=== PATIENT | female | born 1935 | race Caucasian/White ===

== ENCOUNTER 2016-11-14 17:38 | Inpatient (IN) | payer MEDICARE, BC ==
[2016-11-14] MEDS ORDERED: Sodium Chloride 0.9% 1000 ML 0 ML ONE (18:20)
[2016-11-14] MEDS ORDERED: Sodium Chloride 0.9% 1000 ML 1,000 ML IV STA (18:26)
[2016-11-14] MEDS ORDERED: MORPHINE SULFATE 4 MG INJ IV ONE (18:26)
[2016-11-14] MEDS ORDERED: PROTONIX 40 MG IV IV ONE ×2 (18:26→18:39)
[2016-11-14] MEDS ORDERED: Zofran 4 MG/2 ML VIAL IV ONE (18:26)
--- NOTE | 2016-11-14 18:31 | ERPHSYRPT ---
- History of Present Illness Historian: patient, family Exam Limitations: no limitations Patient Subjective Stated Complaint: states shes out of her morphine pain medications back is hurting cannot get in to see dr ornelas until wednesday. pt alert and orietned states has chronic back pain for which she see dr gregorio ornelas , called wednesday and they cannot get her in to see him until wednesday she is in extreme pain from her back and its making her nauseous Triage Nursing Assessment: pt alert and orietned x3, puking up what appears to be coffee ground emesis., pulses equal bilat raduius, patient sweating profusely , handgrips weak, unsteady gait. Timing/Duration: today Activities at Onset: none Quality: aching Abdominal Pain Onset Location: epigastric Pain Radiation: no radiation Severity of Pain-Max: moderate Severity of Pain-Current: moderate Modifying Factors: Improves With: vomiting Associated Symptoms: back, diaphoresis, diarrhea, nausea, vomiting Hx Tetanus, Diphtheria Vaccination/Date Given: Yes Hx Influenza Vaccination/Date Given: No Hx Pneumococcal Vaccination/Date Given: No Immunizations Up to Date: Yes <SHEKHAR SCHRADER - Last Filed: 11/14/16 19:29> <LILY GUTIERREZ - Last Filed: 11/14/16 19:33> - History of Present Illness Time Seen by Provider: 11/14/16 18:26 Physician History: The patient is an 81-year-old female with her son who is brought in for abdominal pain, diarrhea, and vomiting. She has chronic back pain and was not able to get her prescription filled for morphine 2 days ago. She ran out and is wanting also pain relief for her back. Today about 2 PM she's had diarrhea. She then developed abdominal pain about an hour ago followed by vomiting coffee ground emesis. When she arrives in the ER, she vomits coffee ground vomitus again. (SHEKHAR SCHRADER) Allergies/Adverse Reactions: No Known Drug Allergies Allergy (Verified 11/14/16 18:41) Home Medications: Atorvastatin Calcium [Lipitor 20MG Tablet] 20 mg PO HS 12/22/15 [History] Cholecalciferol (Vitamin D3) [Vitamin D] 50,000 unit PO UD 12/22/15 [History] Diltiazem HCl [Cartia Xt] 120 mg PO DAILY 12/22/15 [History] Diltiazem HCl [Cartia Xt] 240 mg PO DAILY 12/22/15 [History] Furosemide [Lasix] 40 mg PO DAILY PRN PRN 12/22/15 [History] Lisinopril 40 mg PO DAILY 12/22/15 [History] Magnesium Oxide 400 mg [Mag-Ox 400] 400 mg PO UD 12/22/15 [History] Polyethylene Glycol 3350 [Miralax] 17 gm PO WEEKLY 12/22/15 [History] Potassium Chloride [Klor-Con M10] 10 meq PO DAILY 12/22/15 [History] Rivaroxaban 10 mg Tablet [Xarelto 10 mg Tablet] 10 mg PO DAILY 12/22/15 [ History] Timolol Maleate 0.25% Eye [Timolol 0.25% Opth Halima 5 ML] 1 drop INTRAOP DAILY 12/22/15 [History] Travoprost (Benzalkonium) [Travatan 0.004% Eye Drop] 2.5 ml OP DAILY 12/22/15 [ History] - Review of Systems Constitutional: No Fever, No Chills Eyes: No Symptoms Ears, Nose, & Throat: No Symptoms Respiratory: No Cough, No Dyspnea Cardiac: No Chest Pain, No Edema, No Syncope Abdominal/Gastrointestinal: Abdominal Pain, Nausea, Vomiting, Diarrhea, Hematemesis Genitourinary Symptoms: No Dysuria Musculoskeletal: No Back Pain, No Neck Pain Skin: No Rash Neurological: No Dizziness, No Focal Weakness, No Sensory Changes Psychological: No Symptoms Endocrine: No Symptoms Hematologic/Lymphatic: No Symptoms Immunological/Allergic: No Symptoms All Other Systems: Reviewed and Negative <SHEKHAR SCHRADER - Last Filed: 11/14/16 19:29> - Past Medical History Pertinent Past Medical History: Yes Neurological History: TIA ENT History: Cataracts, Glaucoma Cardiac History: Arrhythmia, Hypertension Respiratory History: No Pertinent History Endocrine Medical History: No Pertinent History Musculoskeletal History: Arthritis GI Medical History: Colorectal Cancer, Hemorrhoids History: No Pertinent History Psycho-Social History: No Pertinent History Female Reproductive Disorders: No Pertinent History Other Medical History: afib - Past Surgical History Past Surgical History: Yes Neuro Surgical History: No Pertinent History Cardiac: No Pertinent History Respiratory: No Pertinent History Gastrointestinal: Appendectomy, Colon Resection Genitourinary: No Pertinent History Musculoskeletal: No Pertinent History Female Surgical History: Section, Hysterectomy Other Surgical History: Colonoscopy. spinal stenosis. back surgery 02/2015 - Social History Smoking Status: Never smoker Exposure to second hand smoke: Yes Drug Use: none Patient Lives Alone: No <SHEKHAR SCHRADER - Last Filed: 11/14/16 19:29> - Physical Exam General Appearance: moderate distress Eye Exam: PERRL/EOMI, eyes nml inspection Ears, Nose, Throat Exam: normal ENT inspection, pharynx normal, moist mucous membranes Neck Exam: normal inspection, non-tender, supple, full range of motion Respiratory Exam: normal breath sounds, lungs clear, No respiratory distress Cardiovascular Exam: normal heart sounds, tachycardia Gastrointestinal/Abdomen Exam: tenderness (epigastric) Pelvic Exam: not done Rectal Exam: not done Back Exam: normal range of motion, vertebral tenderness, No CVA tenderness Extremity Exam: normal inspection, normal range of motion, pelvis stable Neurologic Exam: alert, oriented x 3, cooperative, normal mood/affect, nml cerebellar function, sensation nml, No motor deficits Skin Exam: normal color, warm, dry SpO2 Interpretation: normal SpO2: 97 Oxygen Delivery: Room Air <SHEKHAR SCHRADER - Last Filed: 11/14/16 19:29> <SHEKHAR SCHRADER - Last Filed: 11/14/16 19:29> - Progress Counseled pt/family regarding: lab results, diagnosis, need for follow-up, rad results <LILY GUTIERREZ - Last Filed: 11/14/16 19:33> - Progress Progress Note: 11/14/16 19:[address] Gutierrez and care transferred at 19:00. (SHEKHAR SCHRADER) 11/14/16 19:30 Pt was initially seen per Dr Schrader. She is a patient of Dr Gregorio Ornelas with chornic arthritis pain. She is on xarelto for chornic a fib. She has had diarrhea, ran out of her morphne, and has some increased pain. On arrival she had large coffee ground emesis which nurse reported to be apparent blood. Mild abd discomfort. No fever or chills. Normal urination. No chest pain. No hx of PUD. No hx of DM. PE: awake and alert. talkative. Abd soft without point tenderness. ND. No edema. Called Dr Kahn and will admit to IP ICU and consult surgeons. Pt thinks she saw Dr Jay 10 years ago for colono CA resection. (LILY GUTIERREZ) <SHEKHAR SCHRADER. - Last Filed: 11/14/16 19:29> - Departure Time of Disposition: 19:33 Departure Disposition: In-patient Admission Critical Care Time: No <LILY GUTIERREZ - Last Filed: 11/14/16 19:33> - Departure Clinical Impression: Upper GI bleed, Chronic pain syndrome Atrial fibrillation Qualifiers: Atrial fibrillation type: chronic Qualified Code(s): I48.2 - Chronic atrial fibrillation Condition: Fair Referrals: REBECA ORNELAS [Primary Care Provider] -
[2016-11-14 18:32] LABS: BASOPHIL % 0.1 % (0.0-0.4); Eosinophil % 0.9 % (0.00-5.0); Granulocytes % 81.6 % (36.0-66.0); Lymphocytes % 9.9 % (24.0-44.0); Mean Cell Volume 93.8 fl (78-100); Mean Corpuscular Hemoglobin 30.3 pg (26-32); Monocytes % 7.5 % (0.0-12.0); Platelet Count 284 K/mm3 (150-450); Red Blood Count 4.35 M/mm3 (4.1-5.4); Red Cell Distribution Width 13.1 % (11.5-14.0); White Blood Count 9.9 K/mm3 (4.0-10.5)
[2016-11-14] MEDS ORDERED: Sodium Chloride 0.9% 1000 ML 1,000 ML ONE (18:39)
[2016-11-14] MEDS ORDERED: Zofran 4 MG/2 ML VIAL ONE (18:39)
[2016-11-14] MEDS ORDERED: MORPHINE SULFATE 4 MG INJ ONE (18:39)
[2016-11-14 18:50] LABS: ALBUMIN 4.4 g/dL (3.4-5.0); ANION GAP 18.7 MEQ/L (5-15); BILIRUBIN,TOTAL 0.3 mg/dL (0.2-1.0); Carbon Dioxide 23.4 mEq/L (21-32); Potassium 3.7 mEq/L (3.5-5.1); Total Protein 8.1 gm/dL (6.4-8.2)
[2016-11-14] MEDS ORDERED: Pepcid 20 MG VIAL IV ONE ×2 (19:18→19:24)
[2016-11-14 19:28] LABS: INR 1.11 (0.8-3.0); PROTIME 12.4 SECONDS (9.95-12.35)
[2016-11-14 19:31] LABS: PTT 30.3 SECONDS (25.3-37.0)
[2016-11-14] MEDS ORDERED: MORPHINE SULFATE 4 MG INJ IV PRN (20:42)
[2016-11-14] MEDS ORDERED: Zofran 4 MG/2 ML VIAL IV PRN (20:42)
[2016-11-14] MEDS: D5W/0.45NS W/ 20mEq KCl 1000 ML 1,000 ML IV SCH (21:22)
[2016-11-14 23:02] LABS: BASOPHIL % 0.2 % (0.0-0.4); Eosinophil % 0.2 % (0.00-5.0); Granulocytes % 83.2 % (36.0-66.0); Lymphocytes % 8.8 % (24.0-44.0); Mean Cell Volume 95.6 fl (78-100); Mean Platelet Volume 9.7 fl (6-9.5); Monocytes % 7.6 % (0.0-12.0); Platelet Count 230 K/mm3 (150-450); Red Blood Count 3.67 M/mm3 (4.1-5.4); Red Cell Distribution Width 12.9 % (11.5-14.0); White Blood Count 10.5 K/mm3 (4.0-10.5)
[2016-11-14 23:05] LABS: Mean Corpuscular Hemoglobin 30.7 pg (26-32)
[2016-11-15 06:08] LABS: BASOPHIL % 0.2 % (0.0-0.4); Eosinophil % 0.4 % (0.00-5.0); Granulocytes % 77.4 % (36.0-66.0); Lymphocytes % 12.4 % (24.0-44.0); Mean Cell Volume 95.2 fl (78-100); Mean Platelet Volume 10.1 fl (6-9.5); Monocytes % 9.6 % (0.0-12.0); Platelet Count 240 K/mm3 (150-450); Red Blood Count 3.56 M/mm3 (4.1-5.4); White Blood Count 10.3 K/mm3 (4.0-10.5)
[2016-11-15 06:32] LABS: ALBUMIN 3.4 g/dL (3.4-5.0); ANION GAP 13.8 MEQ/L (5-15); BILIRUBIN,TOTAL 0.3 mg/dL (0.2-1.0); Carbon Dioxide 23.9 mEq/L (21-32); Potassium 3.8 mEq/L (3.5-5.1); Total Protein 6.5 gm/dL (6.4-8.2)
[2016-11-15] MEDS: D5W/0.45NS W/ 20mEq KCl 1000 ML 1,000 ML IV SCH ×2 (07:22→15:32)
--- NOTE | 2016-11-15 09:26 | XRAY ---
Indication: Hematemesis. Comparison: Chest exam May 06, 2012 2 views of the abdomen demonstrates a few synchronous bowel air-fluid leveling, ileus versus enteritis. Suture material in the right midabdomen. No focal bowel dilatation, obstruction, or free air. Remaining solid organs are unremarkable. Osseous structures intact with osteopenia, multilevel spinal degenerative spondylosis, levorotoscoliosis, L4-L5 fusion, and degenerative changes of both hips. Single frontal chest clear with stable left base calcified granuloma. Heart is not enlarged. Vascularity normal. Bony thorax intact. Impression: 1. Minimal synchronous bowel air-fluid leveling, ileus versus enteritis. No obstruction or free air. 2. Stable nonacute one view chest.
[2016-11-15] MEDS ORDERED: Lasix 40 MG PO PRN (10:27)
[2016-11-15] MEDS ORDERED: Miralax Powder 17GM PACKET PO PRN (10:27)
[2016-11-15] MEDS ORDERED: NON-FORMULARY ITEM (Cholecalciferol (Vitamin D3) [Vitamin D3] 50,000 UNIT) PO SCH (10:30)
[2016-11-15] MEDS: PROTONIX 40 MG IV IV SCH (10:48)
[2016-11-15] MEDS: Timolol 0.25% Opth Sol 5 ML OP SCH (10:50)
[2016-11-15] MEDS: Klor Con 10 MEQ PO SCH (10:52)
[2016-11-15] MEDS: Zestril 20 MG PO SCH (10:52)
[2016-11-15] MEDS: Ms Contin 15 MG PO SCH ×2 (10:53→21:06)
[2016-11-15] MEDS ORDERED: Travatan 0.004% Opth Sol OP SCH (11:00)
[2016-11-15] MEDS ORDERED: Cardizem CD 120 MG PO ONE (12:00)
[2016-11-15] MEDS ORDERED: FLUZONE HIGH-DOSE 2016-17 SYR IM ONE (15:00)
[2016-11-15] MEDS: PATIENT OWN MEDICATION OP SCH (15:28)
[2016-11-15] MEDS ORDERED: NON-FORMULARY ITEM (Atorvastatin Calcium 20 MG) PO SCH (22:00)
[2016-11-15] MEDS ORDERED: ZOCOR 20MG PO SCH (22:00)
[2016-11-15] MEDS ORDERED: DESYREL 50 MG PO PRN (22:00)
[2016-11-16] MEDS: D5W/0.45NS W/ 20mEq KCl 1000 ML 1,000 ML IV SCH (03:29)
[2016-11-16 05:53] LABS: ANION GAP 15.6 MEQ/L (5-15); Carbon Dioxide 23.8 mEq/L (21-32)
[2016-11-16 05:54] LABS: BASOPHIL % 0.3 % (0.0-0.4); Eosinophil % 2.6 % (0.00-5.0); Granulocytes % 66.9 % (36.0-66.0); Lymphocytes % 16.6 % (24.0-44.0); Mean Cell Volume 95.6 fl (78-100); Mean Corpuscular Hemoglobin 30.8 pg (26-32); Mean Platelet Volume 10.2 fl (6-9.5); Monocytes % 13.6 % (0.0-12.0); Platelet Count 211 K/mm3 (150-450); Red Blood Count 3.44 M/mm3 (4.1-5.4); Red Cell Distribution Width 13.1 % (11.5-14.0)
[2016-11-16] MEDS: Zestril 20 MG PO SCH (09:00)
[2016-11-16] MEDS: Ms Contin 15 MG PO SCH (09:10)
[2016-11-16] MEDS: Klor Con 10 MEQ PO SCH (09:10)
[2016-11-16] MEDS: PROTONIX 40 MG IV IV SCH (09:11)
[2016-11-16] MEDS: PATIENT OWN MEDICATION OP SCH (09:14)
[2016-11-16] MEDS ORDERED: MAG-OX 400 PO SCH (10:00)
[2016-11-16] MEDS ORDERED: Cardizem CD 120 MG PO SCH (10:00)
[2016-11-16] MEDS ORDERED: POTASSIUM CHLORIDE 10 MEQ PO SCH (10:00)
[2016-11-16] MEDS ORDERED: TRAVOPROST OP SCH (10:00)
[2016-11-16] MEDS ORDERED: NON-FORMULARY ITEM (Lisinopril [Lisinopril] 40 MG) PO SCH (10:00)
[2016-11-16] MEDS ORDERED: PREVNAR 13 SYRINGE IM ONE (10:00)
[2016-11-16] MEDS ORDERED: VITAMIN D2 PO SCH (10:00)
[2016-11-16] MEDS: Timolol 0.25% Opth Sol 5 ML OP SCH (10:26)
--- NOTE | 2016-11-16 10:58 | HP ---
HISTORY OF PRESENT ILLNESS: This is an 81 year-old patient of Dr. Miguel Angel Snow who presented to the emergency department complaining of diarrhea. She reports she ran out of her morphine on and then started having diarrhea on Wednesday. She has an appointment coming up on Wednesday to see him. While in the emergency room she vomited coffee ground emesis that was positive for blood. She denies any history of any GI bleeds in the past. She reports remote history of colon cancer in 2005 when part of her colon was removed. She did not need chemotherapy and was told that she did not need any more colonoscopies. She reports that she vomited once at home and her son had told her it looked a little bit brown. She denies any stomach pain. She has never had an upper endoscopy. She reports she has been on Xarelto for atrial fibrillation for approximately six months and this was started by Dr. Lima in [place]. REVIEW OF SYSTEMS: She denies any cough, no dyspnea. She has had insomnia and is asking for a sleeping medicine during the day. She has some gas but this is better. She has not had any stool since her admission but she also notes that she has been NPO. No chest pain. No shortness of breath. PAST MEDICAL HISTORY: Atrial fibrillation, hyperlipidemia, colon cancer 2004, hypertension, history of CVA in 2010, glaucoma. PAST SURGICAL HISTORY: Hysterectomy, section x2, right hemicolectomy, back surgery with Dr. Medina in February 2015. MEDICATIONS: Atorvastatin 20 mg p.o. q.h.s., vitamin D 50,000 units p.o. twice weekly, diltiazem 120 mg daily, and she also states she takes 240 mg daily, Furosemide 40 mg daily as needed, lisinopril 40 mg p.o. daily, magnesium oxide 400 mg three times a week, morphine sulfate extended release 15 mg p.o. b.i.d. according to the last office visit note, MiraLAX 17 gm p.o. daily as needed, potassium chloride 10 mEq p.o. daily, Xarelto 10 mg p.o. daily, Atenolol 1 drop as directed, Travoprost as directed. ALLERGIES: NKDA. SOCIAL HISTORY: She used to smoke but quit. She reports she never smoked very much. She denies any alcohol use. She lives alone but her son lives two miles away and checks on her frequently. FAMILY HISTORY: Her father was well until he at 81 years of age. Her mother had a blood disorder and at 78 years of age. PHYSICAL EXAMINATION: VITAL SIGNS: Temperature current 98.0F, temperature max 98.5F, heart rate 72 to 108 currently 73, respiratory rate 12 to 18, blood pressure 137 to 153 over 56 to 72. Oxygen saturation 96 to 98% on room air. GENERAL: The patient is lying in bed, a pleasant talkative lady in no acute distress. CVS: She has a regular rate and rhythm. No murmurs, gallops or rubs are appreciated. CHEST: Clear to auscultation bilaterally. No crackles or wheezes. ABDOMEN: Soft, nontender, nondistended with normal bowel sounds. EXTREMITIES: No clubbing, cyanosis or edema. SKIN: Warm, dry and intact. LABORATORY DATA AND TESTS: ASSESSMENT AND PLAN: 1) Upper GI bleed. She is currently NPO. The surgeons have been consulted for an upper endoscopy. Her Xarelto is being held and she has Protonix IV ordered. Her hemoglobin did drop from 13.2 to 10.7, will continue to monitor this daily. 2) Chronic back pain. Will restart her home morphine and her primary care doctor will be seeing her tomorrow to discuss refills on this. It looks like her last office visit was 09/15/2016 although she states she just now ran out but she takes on a regular basis. 3) Atrial fibrillation, will continue her rate control with Cardizem, will try to confirm the dose of Cardizem with her pharmacy, to hold the anticoagulation at this time due to the upper GI bleed.
[2016-11-16] MEDS ORDERED: Lactated Ringers 1,000 ML IV SCH (11:30)
[2016-11-16 13:47] VITALS: PULSE 66
[2016-11-16 16:09] VITALS: BP 131/63; O2SAT 97
[2016-11-16] MEDS ORDERED: DIPRIVAN 200 MG/20 ML IV ONE (16:11)
--- NOTE | 2016-11-16 17:58 | PCM.DS ---
Discharge Summary Date of Admission: 11/14/16 20:31 Date of Discharge: 11/16/2016 Admitting Physician: REBECA ORNELAS Consults: Consults on Case 11/14/16 20:42 Consult Surgery ROUTINE Primary Care Provider: REBECA ORNELAS Allergies Allergies No Known Drug Allergies Allergy (Verified 11/14/16 18:41) Hospital Summary - Hospital Course Hospital Course: She was admitted with vomiting and diarrhea. SHe had episode of hemetemesis. Her xarelto was held. EGD was done showing gastritis and hiatle hernia. She had no further bleeding and was tolerating po well. She will hold her xarelto for 7 days and follow up in the office. - Vitals & Intake/Output Vital Signs: Vital Signs Temperature 98.4 F 11/16/16 16:09 Pulse Rate 66 11/16/16 16:09 Respiratory Rate 17 11/16/16 16:09 Blood Pressure 131/63 11/16/16 16:09 O2 Sat by Pulse Oximetry 97 11/16/16 16:09 Intake & Output: Intake & Output 11/14/16 11/15/16 11/16/16 11/17/16 11:59 11:59 11:59 11:59 Intake Total 1169 1795 Output Total 750 2400 Balance 419 -605 Weight 81.102 kg 80.739 kg - Lab Result Diagrams: 11/16/16 05:15 11/16/16 05:15 Lab Results-Last 24 Hrs: Lab Results-Last 24 Hours 11/16/16 11/16/16 Range/Units 05:15 05:15 WBC 7.0 (4.0-10.5) K/mm3 RBC 3.44 L (4.1-5.4) M/mm3 Hgb 10.6 L (12.0-16.0) gm/dl Hct 32.9 L (35-47) % MCV 95.6 (78-100) fl MCH 30.8 (26-32) pg MCHC 32.2 (32-36) g/dl RDW 13.1 (11.5-14.0) % Plt Count 211 (150-450) K/mm3 MPV 10.2 H (6-9.5) fl Gran % 66.9 H (36.0-66.0) % Lymphocytes % 16.6 L (24.0-44.0) % Monocytes % 13.6 H (0.0-12.0) % Eosinophils % 2.6 (0.00-5.0) % Basophils % 0.3 (0.0-0.4) % Basophils # 0.02 (0-0.4) Sodium 143 (136-145) mEq/L Potassium 4.0 (3.5-5.1) mEq/L Chloride 108 H (98-107) mEq/L Carbon Dioxide 23.8 (21-32) mEq/L Anion Gap 15.6 H (5-15) MEQ/L BUN 16 (9-20) mg/dL Creatinine 1.29 (0.55-1.30) mg/dl Estimated GFR 42 ML/MIN Glucose 136 H (70-110) MG/DL Calcium 8.9 (8.5-10.1) mg/dL Discharge Exam General Appearance: no apparent distress Neurologic Exam: alert, oriented x 3, cooperative Skin Exam: warm, dry Eye Exam: pale conjunctivae, No scleral icterus Ears, Nose, Throat Exam: moist mucous membranes Neck Exam: normal inspection, non-tender, supple Respiratory Exam: normal breath sounds Cardiovascular Exam: regular rate/rhythm, normal heart sounds Gastrointestinal/Abdomen Exam: soft, normal bowel sounds, No tenderness, No distention, No mass Extremity Exam: normal inspection, normal range of motion Back Exam: normal inspection Final Diagnosis/Problem List - Final Discharge Diagnosis/Problem (1) Anemia Current Visit: Yes Status: Acute (2) Upper GI bleed Current Visit: Yes Status: Acute (3) Chronic pain syndrome Current Visit: Yes Status: Acute (4) Atrial fibrillation Current Visit: Yes Status: Acute (5) Gastritis Current Visit: Yes Status: Acute - Discharge Discharge Date: 11/16/16 Disposition: Home, Self-Care Condition: Fair Prescriptions: PANTOPRAZOLE 40 mg Tablet [Protonix 40MG Tablet] 40 mg PO DAILY #30 tab Medications: Home Medications Atorvastatin Calcium [Lipitor 20MG Tablet] 20 mg PO HS 12/22/15 [Confirmed 11/14] Cholecalciferol (Vitamin D3) [Vitamin D3] 50,000 unit PO UD 12/22/15 [Confirmed 11/14/16] Furosemide [Lasix] 40 mg PO DAILY PRN PRN 12/22/15 [Confirmed 11/14/16] Lisinopril 40 mg PO DAILY 12/22/15 [Confirmed 11/14/16] Magnesium Oxide 400 mg [Mag-Ox 400] 400 mg PO UD 12/22/15 [Confirmed 11/14] Polyethylene Glycol 3350 [Miralax] 17 gm PO DAILY PRN PRN 12/22/15 [Confirmed ] Potassium Chloride [Klor-Con M10] 10 meq PO DAILY 12/22/15 [Confirmed 11/14/16] Timolol Maleate 0.25% Eye [Timolol 0.25% Opth Halima 5 ML] 1 drop INTRAOP DAILY 12/22/15 [Confirmed 11/14/16] Travoprost (Benzalkonium) [Travatan 0.004% Eye Drop] 2.5 ml OP DAILY 12/22/15 [ Confirmed 11/14/16] Diltiazem HCl [Cardizem Cd] 120 mg PO DAILY 11/15/16 [Confirmed 11/15/16] Morphine Sulfate [Morphine Sulfate ER] 15 mg PO Q12H 11/15/16 [Confirmed ] Rivaroxaban 10 mg Tablet [Xarelto 10 mg Tablet] 10 mg PO DAILY #0 [Confirmed 11/14/16] Active Inpatient Medications Diltiazem HCl (Cardizem Cd 120 Mg) 120 mg PO DAILY [facility] Stop: 12/16/16 09:59 Last Admin: 11/16/16 09:15 Dose: 120 mg Ergocalciferol (Vitamin D2) 50,000 unit PO MoTh DAVID Stop: 12/16/16 09:59 Last Admin: 11/16/16 10:27 Dose: 50,000 unit Furosemide (Lasix 40 Mg) 40 mg PO DAILY PRN PRN PRN Reason: swelling Stop: 12/15/16 10:26 Last Admin: 11/15/16 10:52 Dose: 40 mg Potassium Chloride/Dextrose/Sod Cl (D5w/0.45ns W/ 20meq Kcl 1000 Ml) 1,000 mls @ 100 mls/hr IV .Q10H DAVID Stop: 12/14/16 20:41 Last Admin: 11/16/16 03:29 Dose: 100 mls/hr Lisinopril (Zestril 20 Mg) 40 mg PO DAILY [facility] Stop: 12/15/16 10:59 Last Admin: 11/16/16 09:00 Dose: 40 mg Magnesium Oxide (Mag-Ox 400) 400 mg PO MoWeFr DAVID Stop: 12/16/16 09:59 Last Admin: 11/16/16 09:15 Dose: 400 mg Morphine Sulfate (Morphine Sulfate 4 Mg Inj) 4 mg IV Q4H PRN PRN PRN Reason: PAIN Stop: 11/19/16 20:41 Morphine Sulfate (Ms Contin 15 Mg) 15 mg PO Q12HT [facility] Stop: 11/20/16 10:59 Last Admin: 11/16/16 09:10 Dose: 15 mg Ondansetron HCl (Zofran 4 Mg/2 Ml Vial) 4 mg IV Q6H PRN PRN PRN Reason: NAUSEA/VOMITING Stop: 12/14/16 20:41 Pantoprazole Sodium (Protonix 40 Mg Iv) 40 mg IV Q24H10 DAVID Stop: 12/15/16 09:59 Last Admin: 11/16/16 09:11 Dose: 40 mg Travatan Eye Drops 0 each OP DAILY DAVID Stop: 12/15/16 14:59 Last Admin: 11/16/16 09:14 Dose: 1 each Polyethylene Glycol (Miralax Powder 17gm Packet) 17 gm PO DAILY PRN PRN PRN Reason: CONSTIPATION Stop: 12/15/16 10:26 Potassium Chloride (Klor Con 10 Meq) 10 meq PO DAILY [facility] Stop: 12/15/16 10:59 Last Admin: 11/16/16 09:10 Dose: 10 meq Simvastatin (Zocor 20mg) 20 mg PO HS [facility] Stop: 12/15/16 21:59 Last Admin: 11/15/16 21:05 Dose: 20 mg Timolol Maleate (Timolol 0.25% Opth Halima 5 Ml) 0 ml OP 1100 DAVID Stop: 12/15/16 10:59 Last Admin: 11/16/16 10:26 Dose: 5 ml Trazodone HCl (Desyrel 50 Mg) 50 mg PO QHS PRN PRN Reason: INSOMNIA Stop: 12/15/16 21:59 Last Admin: 11/15/16 21:06 Dose: 50 mg Instructions: Gastrointestinal Bleeding Additional Instructions: hold xarelto for 7 days Follow up with: REBECA ORNELAS [Primary Care Provider] - 11/20/16 11:15 am CARITO WILKES [COURTESY STAFF] - 11/23/16 8:05 am (at specialty clinic ) Forms: Discharge Instructions
--- NOTE | 2016-11-17 08:34 | CONS ---
CONSULT DATE: 11/16/2016 This patient was seen for Dr. Mitchell who was consulted over the weekend. I do not see a dictated note on the chart here. HISTORY: An 81 year-old female with some chronic back pain. She is unable to get her morphine. She had some vomiting, coffee ground emesis. She came here to the emergency department. I was asked to see her for GI bleed standpoint. Dr. Mitchell was consulted and asked that I see the patient on Wednesday when I was here. PAST MEDICAL HISTORY: She had colon cancer in the past. She had colon resection. Cataracts and glaucoma. She had transient ischemic attack. Dysrhythmia and hypertension in the past. PAST SURGICAL HISTORY: Colon resection, endoscopy and she also had hysterectomy in the past. SOCIAL HISTORY: No smoking. No alcohol abuse. FAMILY HISTORY: Negative in regards to this problem. REVIEW OF SYSTEMS: She had some nausea, vomiting, diaphoresis, chronic back pain. History of spinal stenosis in the past. Back surgery in the past. section. Appendectomy. Colon resection. Hysterectomy in the past. Otherwise ten systems reviewed per admission assessment. No chronic chest pain. No abdominal pain. HOME MEDICATIONS: Includes atorvastatin, vitamin D3, diltiazem, Furosemide, lisinopril, magnesium oxide, morphine sulfate, MiraLAX, potassium chloride, Xarelto which was held for a few days, Timolol drops for her glaucoma, benzalkonium drops also for glaucoma. PHYSICAL EXAMINATION: GENERAL: No acute distress. HEENT: Sclera nonicteric. NECK: No JVD. CHEST: Equal excursion, nonlabored breathing. CVS: Irregular irregular. ABDOMEN: Soft, nontender. No peritoneal signs. EXTREMITIES: No significant edema. NEURO: Alert, moving extremities symmetrically. No gross motor deficits noted. LAB DATA AND TESTS: Hemoglobin 10, white blood cell count 7, PLT 211,000. IMPRESSION: Coffee ground hematemesis. Hemoglobin 10.6. Hemoccult negative. I felt she would benefit from upper endoscopy to rule out gastritis, peptic ulcer disease or other etiology given the coffee ground hematemesis. Risks and benefits explained in detail but not limited to bleeding or infection, risk of bowel injury or perforation possibly requiring open procedure, risk of ongoing morbidity, small risk missed or nondiagnosis or incomplete exam possibly requiring other studies. She understands and agreed to the planned procedure, will keep her NPO and proceed with EGD when OR time available later today. Thank you for the consult.
--- NOTE | 2016-11-17 08:57 | OP ---
SURGERY DATE/TIME: 11/16/2016 1242 This patient is seen for Dr. Mitchell. PREOPERATIVE DIAGNOSIS: History of coffee ground emesis and anemia. POSTOPERATIVE DIAGNOSES: 1) Mild gastritis. 2) Gastric fundal gland polyp question gastric polyps, question fundal gland polyps, path pending. 3) Gastroesophagitis versus Rodriguez's esophagus, path pending. 4) Very small hiatal hernia. PROCEDURES: 1) EGD with cold biopsy of the antrum to evaluate for Helicobacter pylori. 2) Cold biopsy of multiple gastric polyps. 3) Multiple cold biopsies of distal esophagus to evaluate for Rodriguez's metaplasia. SURGEON: Dr. Stevenson Martino. ANESTHESIA: ESTIMATED BLOOD LOSS: Minimal. INDICATIONS: The patient was seen for Dr. Mitchell who as on-call when the consult came in. DESCRIPTION OF PROCEDURE AND FINDINGS: The patient was taken to the operating room. MAC anesthesia induced. After official time out and no disagreement with planned procedure, bite block positioned. Video gastroscope easily passed down the esophagus through the patent pylorus to the junction of the second and third portion of the duodenum. Duodenum and duodenal bulb grossly unremarkable. There was some pills in the small bowel. Back in the stomach she had some mild gastritis. Cold biopsy taken of the antrum to evaluate for BRYNN-test. On retroflex there was a very slight small hiatal hernia. The scope is straightened. There are multiple benign appearing polyps in the proximal half of the stomach, multiple cold biopsies were taken removing a polyp or two as well as biopsy. It is presumed these are fundal gland-type polyps that biopsy had been taken. Otherwise good hemostasis noted. The scope pulled back and gastroesophageal junction noted to be about 38 to 39 cm. There is a short segment question of Rodriguez's esophagus versus distal gastroesophagitis. Cold biopsy is taken, some brief ooze and watching it for a few seconds appeared to have good hemostasis. There were no signs of any obvious masses or other mucosal lesions on withdrawal of the scope outside the esophagus. The patient tolerated the procedure well. There were no immediate complications. There was no family available to discuss the findings with at this time. Again, there is no evidence of any large ulcers, no evidence of any large masses so likely her hematemesis happened just from emesis being on Xarelto initially. The patient tolerated the procedure well. There were no immediate complications. Again this patient was seen for Dr. Mitchell who was on-call when the consult came in.
== END 2016-11-16 16:12 | disposition home or self-care (01) | DRG 812 ==
LOC: ED 17:38 → ICU 20:31 → MED SURG 11-15 12:47
PROVIDERS: ADMIT Family Medicine; ATTEND Family Medicine
PROC: 0DB68ZX Excision of Stomach, Via Natural or Artificial Opening Endoscopic, Diagnostic (ICD-10-PCS; principal; 2016-11-16)
PROC: 0DB38ZX Excision of Lower Esophagus, Via Natural or Artificial Opening Endoscopic, Diagnostic (ICD-10-PCS; 2016-11-16)
DX: D64.9 Anemia, unspecified (principal); K92.2 Gastrointestinal hemorrhage, unspecified; K92.0 Hematemesis; G89.4 Chronic pain syndrome; I48.91 Unspecified atrial fibrillation; K29.70 Gastritis, unspecified, without bleeding; K20.9 Esophagitis, unspecified; G47.00 Insomnia, unspecified; E78.5 Hyperlipidemia, unspecified; K31.7 Polyp of stomach and duodenum; I10 Essential (primary) hypertension; K44.9 Diaphragmatic hernia without obstruction or gangrene; Z90.49 Acquired absence of other specified parts of digestive tract; Z79.01 Long term (current) use of anticoagulants; Z79.899 Other long term (current) drug therapy; Z85.038 Personal history of other malignant neoplasm of large intestine; Z86.73 Personal history of transient ischemic attack (TIA), and cerebral infarction without residual deficits
CPT/HCPCS: 00740; 36000; 36415; 74022; 80048; 80053; 82271; 82272; 85025; 85610; 85730; 86850; 86900; 86901; 87081; 88305; 90662; 90670; 96360; 96374; 96375; 99100; 99140; 99284; G0008; G0009; J2270; J2405; J2704

== ENCOUNTER 2018-02-10 19:56 | Emergency (ER) | payer MEDICARE, BC ==
--- NOTE | 2018-02-10 20:47 | ERPHSYRPT ---
- History of Present Illness Time Seen by Provider: 02/10/18 20:20 Patient Subjective Stated Complaint: pt states her blood pressure has been elevated for 2 days; pt denies any discomfort r/t her pressure; states she monitors her pressure daily and noticed it has been higher than normal the last 2 days. Triage Nursing Assessment: pt a& x3; skin p, w, & d; ambulated to room per self ; no obvious distress or discomfort noted at this time; family at bedside. Physician History: PATIENT WITH A HISTORY OF HYPERTENSION, TRANSIENT ISCHEMIC ATTACK COMPLAINS OF ELEVATED BLOOD PRESSURE X 2 DAYS. DENIES ASSOCIATED HEADACHE, BLURRED VISION, SLURRED SPEECH , CHEST PAIN, DYSPNEA, DIAPHORESIS, PALPITATIONS, COUGH, NAUSEA. Timing/Duration: day(s) Modifying Factors: Improves With: nothing Associated Symptoms: denies symptoms Allergies/Adverse Reactions: No Known Drug Allergies Allergy (Verified 02/10/18 20:16) Home Medications: Atorvastatin Calcium [Lipitor 20MG Tablet] 20 mg PO HS 12/22/15 [History] Cholecalciferol (Vitamin D3) [Vitamin D3] 50,000 unit PO UD 12/22/15 [History] Furosemide [Lasix] 40 mg PO DAILY PRN PRN 12/22/15 [History] Lisinopril 40 mg PO DAILY 12/22/15 [History] Magnesium Oxide 400 mg [Mag-Ox 400] 400 mg PO UD 12/22/15 [History] Potassium Chloride [Klor-Con M10] 10 meq PO DAILY 12/22/15 [History] Timolol Maleate 0.25% Eye [Timolol 0.25% Opth Halima 5 ML] 1 drop INTRAOP DAILY 12/22/15 [History] Travoprost (Benzalkonium) [Travatan 0.004% Eye Drop] 2.5 ml OP DAILY 12/22/15 [ History] Diltiazem HCl [Cardizem Cd] 120 mg PO DAILY 11/15/16 [History] Morphine Sulfate [Morphine Sulfate ER] 15 mg PO Q12H 11/15/16 [History] Hx Tetanus, Diphtheria Vaccination/Date Given: No Hx Influenza Vaccination/Date Given: Yes Hx Pneumococcal Vaccination/Date Given: Yes Immunizations Up to Date: No - Review of Systems Constitutional: No Fever, No Chills Eyes: No Symptoms Ears, Nose, & Throat: No Symptoms Respiratory: No Symptoms, No Cough, No Dyspnea Cardiac: No Symptoms, No Chest Pain, No Edema, No Syncope Abdominal/Gastrointestinal: No Symptoms, No Abdominal Pain, No Nausea, No Vomiting, No Diarrhea Genitourinary Symptoms: No Symptoms, No Dysuria Musculoskeletal: No Symptoms, No Back Pain, No Neck Pain Skin: No Symptoms, No Rash Neurological: No Dizziness, No Focal Weakness, No Sensory Changes Psychological: No Symptoms Endocrine: No Symptoms All Other Systems: Reviewed and Negative - Past Medical History Pertinent Past Medical History: Yes Neurological History: TIA ENT History: Cataracts, Glaucoma Cardiac History: Arrhythmia, Hypertension Respiratory History: No Pertinent History Endocrine Medical History: No Pertinent History Musculoskeletal History: Arthritis GI Medical History: Colorectal Cancer, Hemorrhoids History: No Pertinent History Psycho-Social History: No Pertinent History Female Reproductive Disorders: No Pertinent History Other Medical History: afib - Past Surgical History Past Surgical History: Yes Neuro Surgical History: No Pertinent History Cardiac: No Pertinent History Respiratory: No Pertinent History Gastrointestinal: Appendectomy, Colon Resection Genitourinary: No Pertinent History Musculoskeletal: No Pertinent History Female Surgical History: Section, Hysterectomy Other Surgical History: Colonoscopy. spinal stenosis. back surgery 02/2015 - Social History Smoking Status: Former smoker Exposure to second hand smoke: No Drug Use: none Patient Lives Alone: No - Female History Hx Last Menstrual Period: hysterectomy - Nursing Vital Signs Nursing Vital Signs: Initial Vital Signs Temperature 97.7 F 02/10/18 20:07 Pulse Rate 80 02/10/18 20:07 Respiratory Rate 16 02/10/18 20:07 Blood Pressure 167/79 02/10/18 20:07 O2 Sat by Pulse Oximetry 99 02/10/18 20:07 Pain Scale Pain Intensity 0 - Physical Exam General Appearance: no apparent distress, alert Eye Exam: PERRL/EOMI, eyes nml inspection Ears, Nose, Throat Exam: normal ENT inspection, TMs normal, pharynx normal, moist mucous membranes Neck Exam: normal inspection, non-tender, supple, full range of motion Respiratory Exam: normal breath sounds, lungs clear, No respiratory distress Cardiovascular Exam: regular rate/rhythm, normal heart sounds, normal peripheral pulses Gastrointestinal/Abdomen Exam: soft, normal bowel sounds, other (NONTENDER,), No tenderness, No mass Back Exam: normal inspection, normal range of motion, No CVA tenderness, No vertebral tenderness Extremity Exam: normal inspection, normal range of motion, pelvis stable, pedal edema (+1 PRETIBIAL EDEMA) Neurologic Exam: alert, oriented x 3, cooperative, normal mood/affect, nml cerebellar function, nml station & gait, sensation nml, No motor deficits Skin Exam: normal color, warm, dry, No rash Lymphatic Exam: No adenopathy SpO2 Interpretation: normal SpO2: 99 Oxygen Delivery: Room Air - Course EKG Interpreted by Me: RATE, Sinus Rhythm, NORMAL AXIS Ordered Tests: Active Orders 24 hr Category Date Time Status Traffic Law Attorney STAT Care 02/10/18 20:41 Active EKG-ER Only STAT Care 02/10/18 20:40 Active BMP Stat Lab 02/10/18 21:05 Completed CBC W DIFF Stat Lab 02/10/18 21:05 Completed MAGNESIUM Stat Lab 02/10/18 21:05 Completed Lab/Rad Data: Laboratory Result Diagrams 02/10/18 21:05 02/10/18 21:05 Laboratory Results 02/10/18 02/10/18 02/10/18 Range/Units 21:05 21:05 21:05 WBC 7.4 (4.0-10.5) K/mm3 RBC 3.64 L (4.1-5.4) M/mm3 Hgb 11.1 L (12.0-16.0) gm/dl Hct 34.7 L (35-47) % MCV 95.3 (78-100) fl MCH 30.4 (26-32) pg MCHC 32.0 (32-36) g/dl RDW 12.9 (11.5-14.0) % Plt Count 209 (150-450) K/mm3 MPV 10.2 H (6-9.5) fl Gran % 61.6 (36.0-66.0) % Eos # (Auto) 0.46 (0-0.5) Absolute Lymphs (auto) 1.61 (1.0-4.6) Absolute Monos (auto) 0.75 (0.0-1.3) Lymphocytes % 21.8 L (24.0-44.0) % Monocytes % 10.1 (0.0-12.0) % Eosinophils % 6.2 H (0.00-5.0) % Basophils % 0.3 (0.0-0.4) % Absolute Granulocytes 4.56 (1.4-6.9) Basophils # 0.02 (0-0.4) Sodium 143 (137-145) mmol/L Potassium 4.3 (3.5-5.1) mmol/L Chloride 109 H (98-107) mmol/L Carbon Dioxide 21 L (22-30) mmol/L Anion Gap 18.0 H (5-15) MEQ/L BUN 22 H (7-17) mg/dL Creatinine 1.22 H (0.52-1.04) mg/dL Estimated GFR 44.8 ML/MIN Glucose 116 H (74-106) mg/dL Calcium 9.7 (8.4-10.2) mg/dL Magnesium 1.9 (1.6-2.3) mg/dL - Progress Progress: unchanged Progress Note: 02/10/18 22:03 BLOOD PRESSURE REMAINED STABLE BP 167/79 AND 163/73 Counseled pt/family regarding: lab results, diagnosis - Departure Time of Disposition: 23:14 Departure Disposition: Home Clinical Impression: HYPERTENSION Condition: Stable Critical Care Time: No Referrals: REBECA ORNELAS [Primary Care Provider] - Additional Instructions: CONTINUE ALL CURRENT MEDICATIONS. CONSULT YOUR PRIMARY CARE PROVIDER TO SCHEDULE A FOLLOWUP APPOINTMENT.
[2018-02-10 21:03] LABS: BASOPHIL % 0.3 % (0.0-0.4); Basophil (Absolute #) 0.02 (0-0.4); Eosinophil % 6.2 % (0.00-5.0); Eosinophil (Absolute #) 0.46 (0-0.5); Granulocyte Absolute (ANC) 4.56 (1.4-6.9); Granulocytes % 61.6 % (36.0-66.0); Hematocrit 34.7 % (35-47); Hemoglobin 11.1 gm/dl (12.0-16.0); Lymphocyte (Absolute #) 1.61 (1.0-4.6); Lymphocytes % 21.8 % (24.0-44.0); Mean Cell Volume 95.3 fl (78-100); Mean Platelet Volume 10.2 fl (6-9.5); Monocyte (Absolute #) 0.75 (0.0-1.3); Monocytes % 10.1 % (0.0-12.0); Platelet Count 209 K/mm3 (150-450); Red Blood Count 3.64 M/mm3 (4.1-5.4); Red Cell Distribution Width 12.9 % (11.5-14.0); White Blood Count 7.4 K/mm3 (4.0-10.5)
[2018-02-10 21:06] LABS: Mean Corpuscular Hemoglobin 30.4 pg (26-32)
[2018-02-10 21:46] LABS: Calcium 9.7 mg/dL (8.4-10.2); Creatinine 1 1.22 mg/dL (0.52-1.04); Potassium 4.3 mmol/L (3.5-5.1)
[2018-02-10 23:19] VITALS: BP 156/72; PULSE 72; O2SAT 100
== END 2018-02-10 23:19 | disposition home or self-care (01) ==
LOC: ED 19:56
DX: I10 Essential (primary) hypertension (principal); Z79.899 Other long term (current) drug therapy
CPT/HCPCS: 36415; 80048; 83735; 85025; 93005; 93041; 99282; 99283

== ENCOUNTER 2018-10-16 13:44 | Emergency (ER) | payer MEDICARE, BC ==
--- NOTE | 2018-10-16 14:14 | ERPHSYRPT ---
- History of Present Illness Time Seen by Provider: 10/16/18 14:03 Source: patient Exam Limitations: no limitations Patient Subjective Stated Complaint: alisson fell in parking lot at [employer] and injured left hip and left shoulder Triage Nursing Assessment: pt alert nad orietnedx3, able to ambualte with cane normally, did stand after incident but in extreme pain, swelling noted to right hip and some bruising, some swelling noted left shoulder nad tenderness as well. Physician History: This is a 83-year-old white female with history TIA, cataracts, glaucoma, arrhythmia, high blood pressure, arthritis, colorectal cancer Patient arrives with complaints of pain in her left shoulder pain in her left hip symptoms since falling at [employer] approximately one hour ago. She denies any neck pain she states she did not hit her head. She is not having any problems breathing she has no chest pain no abdominal pain. Past medical history includes TIA, cataracts, glaucoma, arrhythmia, high blood pressure, arthritis, colorectal cancer, hemorrhoids, atrial fibrillation. Past surgical history includes appendectomy, colon resection, , hysterectomy, back surgery, spinal surgery. Timing/Duration: today (one hour ago) Severity: moderate Associated Symptoms: No nausea, No vomiting, No abdominal pain, No shortness of breath, No heartburn, No diaphoresis, No cough, No chills, No chest pain, No fever, No headaches, No loss of appetite, No malaise, No rash, No syncope, No seizure, No weakness Allergies/Adverse Reactions: No Known Drug Allergies Allergy (Verified 02/10/18 20:16) Home Medications: Atorvastatin Calcium [Lipitor 20MG Tablet] 20 mg PO HS 12/22/15 [History] Cholecalciferol (Vitamin D3) [Vitamin D3] 50,000 unit PO UD 12/22/15 [History] Furosemide [Lasix] 40 mg PO DAILY PRN PRN 12/22/15 [History] Potassium Chloride [Klor-Con M10] 20 meq PO DAILY 12/22/15 [History] Timolol Maleate 0.25% Eye [Timolol 0.25% Opth Halima 5 ML] 1 drop INTRAOP DAILY 12/22/15 [History] Travoprost (Benzalkonium) [Travatan 0.004% Eye Drop] 2.5 ml OP DAILY 02/14/16 [ History] Diltiazem HCl [Cardizem Cd] 120 mg PO DAILY 11/15/16 [History] Morphine Sulfate [Morphine Sulfate ER] 15 mg PO Q8HPRN PRN 11/15/16 [History] Diltiazem HCl [Cartia Xt] 1 tab PO DAILY 10/16/18 [History] Rivaroxaban 10 mg Tablet [Xarelto 10 mg Tablet] 10 mg PO DAILY 10/16/18 [ History] Hx Tetanus, Diphtheria Vaccination/Date Given: Yes Hx Influenza Vaccination/Date Given: Yes Hx Pneumococcal Vaccination/Date Given: Yes Immunizations Up to Date: Yes - Review of Systems Constitutional: No Fever, No Chills Eyes: No Symptoms Ears, Nose, & Throat: No Symptoms Respiratory: No Cough, No Dyspnea Cardiac: No Chest Pain, No Edema, No Syncope Abdominal/Gastrointestinal: No Abdominal Pain, No Nausea, No Vomiting, No Diarrhea Genitourinary Symptoms: No Dysuria Musculoskeletal: Other (left hip pain, left shoulder pain) Skin: No Rash Neurological: No Dizziness, No Focal Weakness, No Sensory Changes Psychological: No Symptoms Endocrine: No Symptoms All Other Systems: Reviewed and Negative - Past Medical History Pertinent Past Medical History: Yes Neurological History: TIA ENT History: Cataracts, Glaucoma Cardiac History: Arrhythmia, Hypertension Respiratory History: No Pertinent History Endocrine Medical History: No Pertinent History Musculoskeletal History: Arthritis GI Medical History: Colorectal Cancer, Hemorrhoids History: No Pertinent History Psycho-Social History: No Pertinent History Female Reproductive Disorders: No Pertinent History Other Medical History: afib - Past Surgical History Past Surgical History: Yes Neuro Surgical History: No Pertinent History Cardiac: No Pertinent History Respiratory: No Pertinent History Gastrointestinal: Appendectomy, Colon Resection Genitourinary: No Pertinent History Musculoskeletal: No Pertinent History Female Surgical History: Section, Hysterectomy Other Surgical History: Colonoscopy. spinal stenosis. back surgery 02/2015 - Social History Smoking Status: Never smoker Exposure to second hand smoke: No Drug Use: none Patient Lives Alone: Yes - Female History Hx Now: No - Nursing Vital Signs Nursing Vital Signs: Initial Vital Signs Pulse Rate 64 10/16/18 13:45 Respiratory Rate 18 10/16/18 13:45 Blood Pressure 111/69 10/16/18 13:45 O2 Sat by Pulse Oximetry 99 10/16/18 13:45 Pain Scale Pain Intensity 3 - Physical Exam General Appearance: mild distress Eye Exam: PERRL/EOMI, eyes nml inspection Ears, Nose, Throat Exam: normal ENT inspection, TMs normal, pharynx normal, moist mucous membranes Neck Exam: normal inspection, non-tender, supple, full range of motion Respiratory Exam: normal breath sounds, lungs clear, No respiratory distress Cardiovascular Exam: regular rate/rhythm, normal heart sounds, normal peripheral pulses Gastrointestinal/Abdomen Exam: soft, normal bowel sounds, No tenderness, No mass Back Exam: normal inspection, normal range of motion, No CVA tenderness, No vertebral tenderness Extremity Exam: other (left shoulder tender with palpation and movement superiorly, left hip tender with palpation and movement laterally) Neurologic Exam: alert, oriented x 3, cooperative, defensive secondary coach II-XII nml as tested, normal mood/affect, nml cerebellar function, nml station & gait, sensation nml, No motor deficits Skin Exam: normal color, warm, dry, No rash SpO2 Interpretation: normal (99%) SpO2: 99 Oxygen Delivery: Room Air - Course Nursing assessment & vital signs reviewed: Yes - Radiology Exams Left Hip X-ray Interpretation: Interpreted by me (no fraacture, no subluxation) Left Shoulder X-ray Interpretation: Interpreted by me (non displaced fracture lateral end of clavicle) Ordered Tests: Active Orders 24 hr Category Date Time Status IV Insertion STAT Care 10/16/18 15:05 Active Sling Application STAT Care 10/16/18 15:28 Active HIP UNI (2V) INCL PEL IF DONE Stat Exams 10/16/18 14:08 Ordered SHOULDER Stat Exams 10/16/18 14:08 Ordered Medication Summary Discontinued Medications Generic Name Dose Route Start Last Admin Trade Name Fran PRN Reason Stop Dose Admin Morphine Sulfate 4 mg 10/16/18 14:35 10/16/18 14:41 Morphine Sulfate 4 Mg Inj IV 10/16/18 14:36 4 mg STAT ONE Administration Morphine Sulfate Confirm 10/16/18 14:39 Morphine Sulfate 4 Mg Inj Administered 10/16/18 14:40 Dose 4 mg .ROUTE .STK-MED ONE Ondansetron HCl 4 mg 10/16/18 14:35 10/16/18 14:41 Zofran 4 Mg/2 Ml Vial IV 10/16/18 14:36 4 mg STAT ONE Administration Ondansetron HCl Confirm 10/16/18 14:39 Zofran 4 Mg/2 Ml Vial Administered 10/16/18 14:40 Dose 4 mg .ROUTE .STK-MED ONE - Progress Progress: improved Progress Note: 10/16/18 14:12 83-year-old white female with history of chronic back pain , arrives with complaint of pain in her left shoulder, left hip after falling at [employer] today. Patient is on morphine extended release 15 mg every 8 hours. Patient is offered pain medication in the emergency room she does not want this at this time. X-ray of the patient's left hip left shoulder are ordered. She denies any neck pain and states she did not hit her head. 10/16/18 15:31 Patient's x-ray left shoulder shows a nondisplaced fracture of the lateral end of the clavicle. Patient's x-ray left hip no fractures are noted. Patient is able to move her hip around without problems. Will go ahead and place a sling on the patient's shoulder have her take her pain medications as prescribed by her family doctor. She will need to call her family doctor and arrange follow-up for within the next few days. 10/16/18 15:35 Your x-rays have been preliminarily read they will be reread tomorrow you will be notified if any discrepancies are noted. - Departure Time of Disposition: 15:33 Departure Disposition: Home Clinical Impression: Accidental fall Qualifiers: Encounter type: initial encounter Qualified Code(s): W19.XXXA - Unspecified fall, initial encounter Fracture of left clavicle Qualifiers: Encounter type: initial encounter Clavicle location: lateral end Fracture type : closed Fracture alignment: nondisplaced Qualified Code(s): S42.035A - Nondisplaced fracture of lateral end of left clavicle, initial encounter for closed fracture Contusion of left hip Qualifiers: Encounter type: initial encounter Qualified Code(s): S70.02XA - Contusion of left hip, initial encounter Condition: Fair Critical Care Time: No Referrals: REBECA ORNELAS [Primary Care Provider] - Additional Instructions: Return home. Cold packs to left hip and left shoulder 24-48 hours . Follow-up with your family doctor call tomorrow to arrange appointment for the next few days. Return for acute distress or for severe symptoms. Pain medications as prescribed by your family doctor.
[2018-10-16] MEDS ORDERED: Zofran 4 MG/2 ML VIAL IV ONE (14:35)
[2018-10-16] MEDS ORDERED: MORPHINE SULFATE 4 MG INJ IV ONE (14:35)
[2018-10-16] MEDS ORDERED: MORPHINE SULFATE 4 MG INJ ONE (14:39)
[2018-10-16] MEDS ORDERED: Zofran 4 MG/2 ML VIAL ONE (14:39)
[2018-10-16 15:05] VITALS: BP 113/52; PULSE 60
[2018-10-16 15:29] VITALS: O2SAT 99
--- NOTE | 2018-10-16 20:11 | XRAY ---
Indication: Pain following fall. Comparison: None 3 views of the left shoulder demonstrates mild AC degenerative arthropathy, mild glenohumeral degenerative arthropathy, small humeral neck bone island, moderate multilevel cervical degenerative spondylosis, and a few mediastinal/left lung calcified granulomas. No other bony, articular, or soft tissue abnormalities.
--- NOTE | 2018-10-16 20:13 | XRAY ---
Indication: Pain following fall. Comparison: None AP pelvis and 2 views of the left hip demonstrates moderate degenerative changes of both hips and lower lumbar fusion hardware. No other bony, articular, or soft tissue abnormalities.
== END 2018-10-16 16:01 | disposition home or self-care (01) ==
LOC: ED 13:44
DX: S42.002A Fracture of unspecified part of left clavicle, initial encounter for closed fracture (principal); S70.02XA Contusion of left hip, initial encounter; W01.0XXA Fall on same level from slipping, tripping and stumbling without subsequent striking against object, initial encounter; Y93.01 Activity, walking, marching and hiking; Y92.22 Religious institution as the place of occurrence of the external cause; Z79.899 Other long term (current) drug therapy
CPT/HCPCS: 36000; 73030; 73502; 96374; 96375; 99284; J2270; J2405

== ENCOUNTER 2020-05-09 11:00 | Emergency (ER) | payer MEDICARE, BC ==
[2020-05-09] MEDS ORDERED: Sodium Chloride 0.9% 1000 ML 1,000 ML IV STA (11:11)
[2020-05-09] MEDS ORDERED: Sodium Chloride 0.9% 1000 ML 1,000 ML ONE (11:22)
--- NOTE | 2020-05-09 11:33 | ERPHSYRPT ---
- History of Present Illness Time Seen by Provider: 05/09/20 11:02 Source: patient, family Exam Limitations: no limitations Patient Subjective Stated Complaint: pt brought in by son for a fall this morning, he found her on the floor. pt is a poor historian and does not remembe the fall, she states she does use a walker at home, she lives alone. pt denies any pain but points to her left shoulder as a place of injury, Triage Nursing Assessment: pt arrived per pov, out of car with assist of one, her son states she has been getting weaker and not eating well.pt was placed on new meds yesterday, pt has bruising to left breast, and left knee that is yellow in trouble, has scabeed area to left forearm, and bruising to left arm and right arm Physician History: Patient is here for fall of unknown downtime. Per the son, he found the patient down at home today. She is more confused than she usually is. She is on a b lood thinner, Xarelto for A. fib. He states that she does have a history of some minor falls but nothing like this. He states that she is more confused than her baseline. She does not remember the fall. She is unsure of how long she has been down for. She denies any chest pain, shortness of breath, nausea, vomiting right now. Timing/Duration: today Severity: mild Modifying Factors: Improves With: movement, rest Associated Symptoms: denies symptoms Allergies/Adverse Reactions: No Known Drug Allergies Allergy (Verified 05/09/20 11:13) Home Medications: Atorvastatin Calcium [Lipitor 20MG Tablet] 20 mg PO HS 12/22/15 [History] Cholecalciferol (Vitamin D3) [Vitamin D3] 50,000 unit PO UD 12/22/15 [History] Potassium Chloride [Klor-Con M10] 20 meq PO DAILY 12/22/15 [History] Timolol Maleate 0.25% Eye [Timolol 0.25% Opth Halima 5 ML] 1 drop INTRAOP DAILY 12/22/15 [History] Travoprost (Benzalkonium) [Travatan 0.004% Eye Drop] 2.5 ml OP DAILY 12/22/15 [History] Diltiazem HCl [Cardizem Cd] 120 mg PO DAILY 11/15/16 [History] Morphine Sulfate [Morphine Sulfate ER] 15 mg PO Q8HPRN PRN 11/15/16 [History] Diltiazem HCl [Cartia Xt] 1 tab PO DAILY 10/16/18 [History] Rivaroxaban 10 mg Tablet [Xarelto 10 mg Tablet] 10 mg PO DAILY 10/16/18 [History] Mirtazapine 15 mg DAILY 05/09/20 [History] Hx Tetanus, Diphtheria Vaccination/Date Given: Yes Hx Influenza Vaccination/Date Given: Yes Hx Pneumococcal Vaccination/Date Given: Yes Immunizations Up to Date: Yes Travel Risk - International Travel Have you traveled outside of the country in past 3 weeks: No - Coronavirus Screening Are you exhibiting any of the following symptoms?: No Close contact with a COVID-19 positive Pt in past 14-21 Days: No - Review of Systems Constitutional: No Fever, No Chills Eyes: No Symptoms Ears, Nose, & Throat: No Symptoms Respiratory: No Cough, No Dyspnea Cardiac: No Chest Pain, No Edema, No Syncope Abdominal/Gastrointestinal: No Abdominal Pain, No Nausea, No Vomiting, No Diarrhea Genitourinary Symptoms: No Dysuria Musculoskeletal: No Back Pain, No Neck Pain Skin: No Rash Neurological: No Dizziness, No Focal Weakness, No Sensory Changes Psychological: No Symptoms Endocrine: No Symptoms All Other Systems: Reviewed and Negative - Past Medical History Pertinent Past Medical History: Yes Neurological History: TIA ENT History: Cataracts, Glaucoma Cardiac History: Arrhythmia, Hypertension Respiratory History: No Pertinent History Endocrine Medical History: No Pertinent History Musculoskeletal History: Arthritis GI Medical History: Colorectal Cancer, Hemorrhoids History: No Pertinent History Psycho-Social History: No Pertinent History Female Reproductive Disorders: No Pertinent History Other Medical History: afib - Past Surgical History Past Surgical History: Yes Neuro Surgical History: No Pertinent History Cardiac: No Pertinent History Respiratory: No Pertinent History Gastrointestinal: Appendectomy, Colon Resection Genitourinary: No Pertinent History Musculoskeletal: No Pertinent History Female Surgical History: Section, Hysterectomy Other Surgical History: Colonoscopy. spinal stenosis. back surgery 02/2015 - Social History Smoking Status: Never smoker Exposure to second hand smoke: No Drug Use: none Patient Lives Alone: Yes - Female History Hx Last Menstrual Period: post - Nursing Vital Signs Nursing Vital Signs: Initial Vital Signs Temperature 97.0 F 05/09/20 11:01 Pulse Rate 76 05/09/20 11:01 Respiratory Rate 16 05/09/20 11:01 Blood Pressure 124/66 05/09/20 11:01 O2 Sat by Pulse Oximetry 99 05/09/20 11:01 Pain Scale Pain Intensity 5 - Physical Exam General Appearance: no apparent distress, alert Eye Exam: PERRL/EOMI, eyes nml inspection Ears, Nose, Throat Exam: normal ENT inspection, TMs normal, pharynx normal, moist mucous membranes Neck Exam: normal inspection, non-tender, supple, full range of motion Respiratory Exam: normal breath sounds, lungs clear, No respiratory distress Cardiovascular Exam: regular rate/rhythm, normal heart sounds, normal peripheral pulses Gastrointestinal/Abdomen Exam: soft, normal bowel sounds, No tenderness, No mass Back Exam: normal inspection, normal range of motion, No CVA tenderness, No vertebral tenderness Extremity Exam: normal inspection, normal range of motion, pelvis stable Neurologic Exam: alert, oriented x 3, cooperative, normal mood/affect, nml cerebellar function, nml station & gait, sensation nml, No motor deficits Skin Exam: normal color, warm, dry, No rash Lymphatic Exam: No adenopathy SpO2 Interpretation: normal SpO2: 99 Comments: 05/09/20 11:33 No obvious deformity, sensation intact, 2+ capillary refill, 2 point tactile dis crimination intact. 5 out of 5 strength. Full range of motion without pain. Compartments are soft, nontender. Overlying skin shows no tenting, some bruising, ecchymosis. Ordered Tests: Active Orders 24 hr Category Date Time Status EKG-ER Only STAT Care 05/09/20 11:11 Active IV Insertion STAT Care 05/09/20 11:11 Active cath [Cath for Specimen-Straight] STAT Care 05/09/20 11:13 Active CERVICAL SPINE WO CONTRAST [CT] Stat Exams 05/09/20 11:12 Completed CHEST 2 VIEWS (PA AND LAT) Stat Exams 05/09/20 11:11 Completed HEAD WITHOUT CONTRAST [CT] Stat Exams 05/09/20 11:12 Completed PELVIS (1 OR 2 VIEWS) Stat Exams 05/09/20 12:21 Completed CBC W DIFF Stat Lab 05/09/20 11:45 Completed CMP Stat Lab 05/09/20 11:45 Completed CULTURE,URINE Stat Lab 05/09/20 11:45 Received Manual Differential NC Stat Lab 05/09/20 11:45 Completed NT PRO BNP Stat Lab 05/09/20 11:45 Completed PROTIME WITH INR Stat Lab 05/09/20 11:45 Completed PTT Stat Lab 05/09/20 11:45 Completed TROPONIN Q3H Lab 05/09/20 11:45 Completed TROPONIN Q3H Lab 05/09/20 14:15 Ordered TROPONIN Q3H Lab 05/09/20 17:15 Ordered TROPONIN Q3H Lab 05/09/20 20:15 Ordered TROPONIN Q3H Lab 05/09/20 23:15 Ordered UA W/RFX UR CULTURE Stat Lab 05/09/20 11:45 Completed Medication Summary Discontinued Medications Generic Name Dose Route Start Last Admin Trade Name Freq PRN Reason Stop Dose Admin Sodium Chloride 1,000 mls @ 999 mls/hr 05/09/20 11:11 05/09/20 11:44 Sodium Chloride 0.9% 1000 Ml IV 05/09/20 12:11 999 mls/hr .Q1H1M STA Administration Sodium Chloride Confirm 05/09/20 11:22 Sodium Chloride 0.9% 1000 Ml Administered 05/09/20 11:23 Dose 1,000 mls @ ud .ROUTE .STK-MED ONE Ceftriaxone Sodium/Dextrose 1 g in 50 mls @ 100 mls/hr 05/09/20 12:13 05/09/20 12:37 Rocephin 1 Gm-D5w 50 Ml Bag IV 05/09/20 12:42 100 mls/hr STAT STA 100 mls/hr Administration Ceftriaxone Sodium/Dextrose Confirm 05/09/20 12:35 Rocephin 1 Gm-D5w 50 Ml Bag Administered 05/09/20 12:36 Dose 1 g in 50 mls @ ud IV .STK-MED ONE Lab/Rad Data: Laboratory Result Diagrams 05/09/20 11:45 05/09/20 11:45 Laboratory Results 05/09/20 05/09/20 05/09/20 Range/Units 11:45 11:45 11:45 WBC (4.0-10.5) K/mm3 RBC (4.1-5.4) M/mm3 Hgb (12.0-16.0) gm/dl Hct (35-47) % MCV (78-100) fl MCH (26-32) pg MCHC (32-36) g/dl RDW (11.5-14.0) % Plt Count (150-450) K/mm3 MPV (7.5-11.0) fl PT 20.8 H (9.95-12.35) SECONDS INR 1.83 (0.8-3.0) APTT 31.3 (25.3-37.0) SECONDS Sodium (137-145) mmol/L Potassium (3.5-5.1) mmol/L Chloride (98-107) mmol/L Carbon Dioxide (22-30) mmol/L Anion Gap (5-15) MEQ/L BUN (7-17) mg/dL Creatinine (0.52-1.04) mg/dL Estimated GFR ML/MIN Glucose (74-106) mg/dL Calcium (8.4-10.2) mg/dL Total Bilirubin (0.2-1.3) mg/dL AST (14-36) U/L ALT (0-35) U/L Alkaline Phosphatase (38-126) U/L Troponin I 0.056 H* (0.000-0.034) ng/mL NT-Pro-B Natriuret Pep (0-1800) pg/mL Serum Total Protein (6.3-8.2) g/dL Albumin (3.5-5.0) g/dL Urine Color COSME (YELLOW) Urine Appearance CLOUDY (CLEAR) Urine pH 5.0 (5-6) Ur Specific Wells 1.014 (1.005-1.025) Urine Protein NEGATIVE (Negative) Urine Ketones NEGATIVE (NEGATIVE) Urine Blood SMALL (0-5) Dimitry/ul Urine Nitrite NEGATIVE (NEGATIVE) Urine Bilirubin NEGATIVE (NEGATIVE) Urine Urobilinogen 2 (0-1) mg/dL Ur Leukocyte Esterase LARGE (NEGATIVE) Urine WBC (Auto) 16-25 (0-5) /HPF Urine RBC (Auto) NONE (0-2) /HPF U Epithel Cells (Auto) RARE (FEW) /HPF Urine Bacteria (Auto) PACKED (NEGATIVE) /HPF Urine Mucus (Auto) SLIGHT (NEGATIVE) /HPF Urine Culture Reflexed ORDERED SEPARATELY (NO) Urine Glucose NEGATIVE (NEGATIVE) mg/dL 05/09/20 05/09/20 Range/Units 11:45 11:45 WBC 23.6 H (4.0-10.5) K/mm3 RBC 3.74 L (4.1-5.4) M/mm3 Hgb 11.3 L (12.0-16.0) gm/dl Hct 35.0 (35-47) % MCV 93.6 (78-100) fl MCH 30.2 (26-32) pg MCHC 32.3 (32-36) g/dl RDW 13.6 (11.5-14.0) % Plt Count 221 (150-450) K/mm3 MPV 11.4 H (7.5-11.0) fl PT (9.95-12.35) SECONDS INR (0.8-3.0) APTT (25.3-37.0) SECONDS Sodium 138 (137-145) mmol/L Potassium 4.9 (3.5-5.1) mmol/L Chloride 103 (98-107) mmol/L Carbon Dioxide 20 L (22-30) mmol/L Anion Gap 19.8 H (5-15) MEQ/L BUN 79 H (7-17) mg/dL Creatinine 4.44 H (0.52-1.04) mg/dL Estimated GFR 10.1 ML/MIN Glucose 142 H (74-106) mg/dL Calcium 9.6 (8.4-10.2) mg/dL Total Bilirubin 0.70 (0.2-1.3) mg/dL AST 27 (14-36) U/L ALT 15 (0-35) U/L Alkaline Phosphatase 53 (38-126) U/L Troponin I (0.000-0.034) ng/mL NT-Pro-B Natriuret Pep 1270 (0-1800) pg/mL Serum Total Protein 7.1 (6.3-8.2) g/dL Albumin 4.2 (3.5-5.0) g/dL Urine Color (YELLOW) Urine Appearance (CLEAR) Urine pH (5-6) Ur Specific Wells (1.005-1.025) Urine Protein (Negative) Urine Ketones (NEGATIVE) Urine Blood (0-5) Dimitry/ul Urine Nitrite (NEGATIVE) Urine Bilirubin (NEGATIVE) Urine Urobilinogen (0-1) mg/dL Ur Leukocyte Esterase (NEGATIVE) Urine WBC (Auto) (0-5) /HPF Urine RBC (Auto) (0-2) /HPF U Epithel Cells (Auto) (FEW) /HPF Urine Bacteria (Auto) (NEGATIVE) /HPF Urine Mucus (Auto) (NEGATIVE) /HPF Urine Culture Reflexed (NO) Urine Glucose (NEGATIVE) mg/dL - Progress Progress: improved Progress Note: 05/09/20 11:[address] We will obtain head CT, basic labs, CT C-spine, chest x-ray, pelvis x-ray - We'll obtain basic labs, fluids, EKG, troponin, chest x-ray - EKG shows no ST changes - my read. See full read below. - O2 saturations consistently greater than 95%. - CXR shows pneumonia, no pneumothorax - my read - no other obvious lab abnormalities 05/09/20 13:[address] shows no obvious brain bleed. Chest x-ray does show possible pneumonia. Rocephin started in the ER for UTI as well. Patient has an elevated troponin. However, no obvious STEMI on EKG. Patient will need to be transferred somewhere for complete cardiology evaluation and continued monitoring. We will give patient aspirin given that she can now has a negative head CT. I did discuss over the phone with on-call ER physician at [facility], Dr. Wright. He accepted the patient for admission. Will go ER to ER transfer. Patient continues to be hemodynamically stable at this point in time. ED critical care statement As staff physician, I have provided critical care. Time: 45 Criteria for critical illness: NSTEMI, elevated trop, UTI, infection Treatment and management provided include: Coordination of management with ETC care team, consultants, and inpatient care team. [id number] assessment of condition and response to therapy. Review and interpretation of emergent diagnostic testing. Medical chart review and completion. Direction and immediate supervision of the following therapy: Critical care was time spent personally by me on the following activities: blood draw for specimens, de velopment of treatment plan with patient or surrogate, discussions with consultants, discussions with primary provider, interpretation of cardiac output measurements, evaluation of patient's response to treatment, examination of patient, obtaining history from patient or surrogate, ordering and performing treatments and interventions, ordering and review of laboratory studies, ordering and review of radiographic studies, pulse oximetry, re-evaluation of patient's condition and review of old charts. This time was independent of all procedures performed. Haider Roberto - Departure Departure Disposition: Transfer Clinical Impression: NSTEMI (non-ST elevated myocardial infarction), Elevated troponin, UTI (urinary tract infection) Condition: Stable Critical Care Time: No Referrals: PRASHANT GARDNER [Primary Care Provider] -
[2020-05-09 11:54] LABS: Hemoglobin 11.3 gm/dl (12.0-16.0); Mean Cell Volume 93.6 fl (78-100); Mean Corpuscular Hemoglobin 30.2 pg (26-32); Mean Corpuscular Hgb Concent. 32.3 g/dl (32-36); Mean Platelet Volume 11.4 fl (7.5-11.0); Platelet Count 221 K/mm3 (150-450); Red Blood Count 3.74 M/mm3 (4.1-5.4); Red Cell Distribution Width 13.6 % (11.5-14.0); White Blood Count 23.6 K/mm3 (4.0-10.5)
[2020-05-09 12:03] LABS: Appearance CLOUDY (CLEAR); Bacteria PACKED /HPF (NEGATIVE); Bilirubin NEGATIVE (NEGATIVE); Blood SMALL Ery/ul (0-5); Epithelial Cells RARE /HPF (FEW); Glucose NEGATIVE (NEGATIVE); Ketones NEGATIVE (NEGATIVE); Leukocyte Esterase LARGE (NEGATIVE); Mucus SLIGHT /HPF (NEGATIVE); Nitrite NEGATIVE (NEGATIVE); Protein,Urine Dip NEGATIVE (Negative); Specific Gravity 1.014 (1.005-1.025); Urobilinogen 2 mg/dL (0-1)
[2020-05-09] MEDS ORDERED: ROCEPHIN 1 Gm-D5w 50 ml Bag** 1 G/50 ML IVPB IV STA (12:13)
[2020-05-09 12:15] LABS: ALBUMIN 4.2 g/dL (3.5-5.0); ANION GAP 19.8 MEQ/L (5-15); BILIRUBIN,TOTAL 0.7 mg/dL (0.2-1.3); Calcium 9.6 mg/dL (8.4-10.2); Creatinine 1 4.44 mg/dL (0.52-1.04); Potassium 4.9 mmol/L (3.5-5.1); Total Protein 7.1 g/dL (6.3-8.2)
[2020-05-09 12:29] LABS: PROTIME 20.8 SECONDS (9.95-12.35); PTT 31.3 SECONDS (25.3-37.0)
--- NOTE | 2020-05-09 12:29 | XRAY ---
Indication: Status post fall. Multiple contiguous axial images obtained through the head without contrast. Comparison: May 03, 2012. Images near the top of brain slightly degraded by motion artifact. 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 New right basal ganglia remote lacunar infarct. No acute intracranial hemorrhage, abnormal extra-axial fluid collection, or mass effect. Fourth ventricle is midline without hydrocephalus. Bony calvarium intact. Visualized paranasal sinuses and mastoid air cells are clear. Impression: Minimal motion artifact.. Again atrophy, degenerative micro-ischemia, and remote infarcts as detailed. No acute intracranial abnormalities.
[2020-05-09 12:30] LABS: INR 1.83 (0.8-3.0)
[2020-05-09] MEDS ORDERED: ROCEPHIN 1 Gm-D5w 50 ml Bag** 1 G/50 ML IVPB IV ONE (12:35)
--- NOTE | 2020-05-09 12:38 | XRAY ---
Indication: Status post fall. Multiple contiguous axial images obtained through the cervical spine. Sagittal and coronal reformatted images obtained. Comparison: July 15, 2011. Axial images again negative for acute fracture or spinal canal stenosis. Progressive worsening mild/moderate multilevel degenerative spondylosis again greatest C4-C7 levels. Also worsening moderate multilevel bilateral degenerative facet hypertrophy and atlantoaxial degenerative changes. Base of the odontoid demonstrates interval enlarging subcortical 11 mm cyst. Stable nonunited posterior arch C1. Sagittal and coronal reformatted images again demonstrates cervical lordotic straightening, positional versus paraspinal spasm. Stable C4-C7 disc space loss and 2 mm C7 anterolisthesis. No acute compression fracture or jumped facet. Normal cranial cervical junction. Visualized noncontrasted soft tissues now demonstrate mild bilateral carotid calcifications. Lung apices demonstrates new patchy right upper lobe groundglass airspace opacities. Impression: 1. Stable cervical lordotic straightening, positional versus paraspinal spasm. Negative for acute fracture. 2. Progressive worsening multilevel degenerative changes, especially atlantoaxial articulation. 3. Stable minimal grade 1 C7 anterolisthesis. 4. New right upper lobe patchy airspace disease.
--- NOTE | 2020-05-09 12:42 | XRAY ---
Indication: Chest pain following fall. Comparison: November 14, 2016. PA/lateral chest again hyperinflated with new mild right infrahilar infiltrate versus atelectasis. Stable chronic right hemidiaphragm elevation, tiny left base calcified granuloma, and mediastinal calcified nodes. Remaining heart and lungs unremarkable. Bony thorax intact with new finding old left 8 rib fracture. Stable mild osteopenia, degenerative changes, and mild double curvature scoliosis. Impression: New right infrahilar infiltrate/atelectasis. Correlate clinically. Incidental chronic findings as above.
--- NOTE | 2020-05-09 12:44 | XRAY ---
Indication: Pain following fall. Comparison: October 16, 2018. AP pelvis again demonstrates osteopenia, moderate degenerative changes both hips, and moderate degenerative changes of visualized lumbar spine with lower lumbar fusion hardware. Incidental right mid abdomen suture material. No acute findings. Impression: Nonacute pelvis with chronic features.
[2020-05-09 13:54] LABS: Lymphocytes 4 % (24-44); Monocyte 3 % (0.0-12.0); Neutrophils 93 % (36.0-66.0); Total Cells Counted 100
[2020-05-09 13:59] LABS: Platelet Estimate NORMAL (NORMAL)
[2020-05-09 14:00] LABS: Toxic Granulation 1+
[2020-05-09] MEDS ORDERED: PERCOCET TABLET 5/325MG PO ONE (14:49)
[2020-05-09] MEDS ORDERED: PERCOCET TABLET 5/325MG ONE (14:51)
[2020-05-09 15:22] VITALS: BP 120/50; PULSE 78; O2SAT 96
== END 2020-05-09 15:22 | disposition short-term general hospital (02) ==
LOC: ED 11:00
DX: I21.3 ST elevation (STEMI) myocardial infarction of unspecified site (principal); R74.8 Abnormal levels of other serum enzymes; N39.0 Urinary tract infection, site not specified; I10 Essential (primary) hypertension; Z85.038 Personal history of other malignant neoplasm of large intestine; Z86.73 Personal history of transient ischemic attack (TIA), and cerebral infarction without residual deficits; Z90.49 Acquired absence of other specified parts of digestive tract; S20.02XA Contusion of left breast, initial encounter; W19.XXXA Unspecified fall, initial encounter; Y93.9 Activity, unspecified; Y92.9 Unspecified place or not applicable; S80.02XA Contusion of left knee, initial encounter; S40.022A Contusion of left upper arm, initial encounter; S40.021A Contusion of right upper arm, initial encounter
CPT/HCPCS: 36000; 36415; 70450; 71046; 72125; 72170; 80053; 81001; 83880; 84484; 85025; 85610; 85730; 87077; 87086; 87186; 93005; 93041; 94760; 96360; 96365; 99285; P9612; J0696; A9270-GY

== ENCOUNTER 2021-10-08 15:02 | Emergency (ER) | payer MEDICARE, BC ==
[2021-10-08] MEDS ORDERED: Sodium Chloride 0.9% 1000 ML 1,000 ML ONE (15:43)
[2021-10-08] MEDS ORDERED: Sodium Chloride 0.9% 1000 ML 1,000 ML IV SCH (15:45)
[2021-10-08 16:07] LABS: Absolute Neutrophil Ct (ANC) 3.95 (1.4-6.9); BASOPHIL % 0.2 % (0.0-0.4); Basophil (Absolute #) 0.01 (0-0.4); Eosinophil % 0.9 % (0.00-5.0); Eosinophil (Absolute #) 0.05 (0-0.5); Hematocrit 39.9 % (35-47); Hemoglobin 12.4 gm/dl (12.0-16.0); Lymphocyte (Absolute #) 0.95 (1.0-4.6); Lymphocytes % 16.4 % (24.0-44.0); Mean Cell Volume 94.1 fl (78-100); Mean Corpuscular Hemoglobin 29.2 pg (26-32); Mean Corpuscular Hgb Concent. 31.1 g/dl (32-36); Mean Platelet Volume 10.5 fl (7.5-11.0); Monocyte (Absolute #) 0.85 (0.0-1.3); Monocytes % 14.6 % (0.0-12.0); Neutrophil % 67.9 % (36.0-66.0); Platelet Count 170 K/mm3 (150-450); Red Blood Count 4.24 M/mm3 (4.1-5.4); Red Cell Distribution Width 14.5 % (11.5-14.0); White Blood Count 5.8 K/mm3 (4.0-10.5)
--- NOTE | 2021-10-08 16:23 | XRAY ---
Indication: Weakness. Comparison: May 09, 2020. Portable chest underinflated with new minimal left mid lung subsegmental atelectasis/scarring. Stable left base calcified granuloma. Remaining heart and lungs unremarkable. Bony thorax intact.
[2021-10-08 16:34] LABS: ALBUMIN 4.3 g/dL (3.5-5.0); ANION GAP 14.8 MEQ/L (5-15); BILIRUBIN,TOTAL 0.3 mg/dL (0.2-1.3); Calcium 8.9 mg/dL (8.4-10.2); Creatinine 1 1.26 mg/dL (0.52-1.04); EST GLOMERULAR FILTRATION RATE 42.9 ML/MIN; MAGNESIUM 2.1 mg/dL (1.6-2.3); Potassium 3.5 mmol/L (3.5-5.1); Total Protein 6.8 g/dL (6.3-8.2)
[2021-10-08 16:49] VITALS: O2SAT 96
[2021-10-08 16:55] LABS: Appearance SLIGHTLY CLOUDY (CLEAR); Bilirubin NEGATIVE (NEGATIVE); Blood NEGATIVE Ery/ul (0-5); Glucose NEGATIVE (NEGATIVE); Ketones NEGATIVE (NEGATIVE); Leukocyte Esterase NEGATIVE (NEGATIVE); Mucus SLIGHT /HPF (NEGATIVE); Nitrite NEGATIVE (NEGATIVE); Protein,Urine Dip 30 (Negative); Specific Gravity 1.019 (1.005-1.025); Urobilinogen NEGATIVE mg/dL (0-1)
--- NOTE | 2021-10-08 17:50 | ERPHSYRPT ---
- History of Present Illness Time Seen by Provider: 10/08/21 15:11 Source: patient, family, EMS Exam Limitations: no limitations Patient Subjective Stated Complaint: " I've felt so weak and tired the past couple of days. I have a cough". Triage Nursing Assessment: Pt presents to ER with complaints of generalized all over weakness and fatigue, pt also complains of slight intermittent cough. Pt is alert and oriented x3. Appears weak. Respirations are unlabored at this time. Pt denies pain. Denies nausea, vomiting, or diarrhea. Pt skin is pink, warm, and dry. Pt abdomen is soft and nontender. No edema noted. Pt's son states there was family around this pt at [facility] who then tested postive for Covid19. Timing/Duration: day(s) (2), constant, gradual onset, worse Severity: moderate Modifying Factors: Improves With: rest. Worsens With: movement Associated Symptoms: cough, loss of appetite, weakness Allergies/Adverse Reactions: No Known Drug Allergies Allergy (Verified 10/08/21 15:13) Home Medications: Atorvastatin Calcium [Lipitor 20MG Tablet] 20 mg PO HS 12/22/15 [History] Cholecalciferol (Vitamin D3) [Vitamin D3] 50,000 unit PO UD 12/22/15 [History] Potassium Chloride [Klor-Con M10] 20 meq PO DAILY 12/22/15 [History] Timolol Maleate 0.25% Eye [Timolol 0.25% Opth Halima 5 ML] 1 drop INTRAOP DAILY 12/22/15 [History] Travoprost (Benzalkonium) [Travatan 0.004% Eye Drop] 2.5 ml OP DAILY 12/22/15 [History] Diltiazem HCl [Cardizem Cd] 120 mg PO DAILY 11/15/16 [History] Morphine Sulfate [Morphine Sulfate ER] 15 mg PO Q8HPRN PRN 11/15/16 [History] Diltiazem HCl [Cartia Xt] 1 tab PO DAILY 10/16/18 [History] Rivaroxaban 10 mg Tablet [Xarelto 10 mg Tablet] 10 mg PO DAILY 10/16/18 [History] Mirtazapine 15 mg DAILY 05/09/20 [History] Hx Tetanus, Diphtheria Vaccination/Date Given: No Hx Influenza Vaccination/Date Given: No Hx Pneumococcal Vaccination/Date Given: No Immunizations Up to Date: No Travel Risk - International Travel Have you traveled outside of the country in past 3 weeks: No - Coronavirus Screening Are you exhibiting any of the following symptoms?: Yes Symptoms: Cough: New Onset Close contact with a COVID-19 positive Pt in past 14-21 Days: Yes - Vaccine Status Have you recieved a Covid-19 vaccination: No - Past Medical History Pertinent Past Medical History: Yes Neurological History: TIA ENT History: Cataracts, Glaucoma Cardiac History: Arrhythmia, Hypertension Respiratory History: No Pertinent History Endocrine Medical History: No Pertinent History Musculoskeletal History: Arthritis GI Medical History: Colorectal Cancer, Hemorrhoids History: No Pertinent History Psycho-Social History: No Pertinent History Female Reproductive Disorders: No Pertinent History Other Medical History: afib - Past Surgical History Past Surgical History: Yes Neuro Surgical History: No Pertinent History Cardiac: No Pertinent History Respiratory: No Pertinent History Gastrointestinal: Appendectomy, Colon Resection Genitourinary: No Pertinent History Musculoskeletal: No Pertinent History Female Surgical History: Section, Hysterectomy Other Surgical History: Colonoscopy. spinal stenosis. back surgery 02/2015 - Social History Smoking Status: Never smoker Exposure to second hand smoke: No Drug Use: none Patient Lives Alone: No - Nursing Vital Signs Nursing Vital Signs: Initial Vital Signs Temperature 98.1 F 10/08/21 15:07 Pulse Rate 74 10/08/21 15:07 Respiratory Rate 16 10/08/21 15:07 Blood Pressure 181/78 10/08/21 15:07 O2 Sat by Pulse Oximetry 100 10/08/21 15:07 Pain Scale Pain Intensity 4 - Physical Exam General Appearance: no apparent distress, alert Eye Exam: PERRL/EOMI, eyes nml inspection Ears, Nose, Throat Exam: normal ENT inspection, TMs normal, pharynx normal Neck Exam: normal inspection, supple, full range of motion Respiratory Exam: normal breath sounds, lungs clear Cardiovascular Exam: regular rate/rhythm, normal heart sounds Gastrointestinal/Abdomen Exam: soft, normal bowel sounds, No tenderness Back Exam: normal inspection, normal range of motion Extremity Exam: normal inspection, normal range of motion, pelvis stable Neurologic Exam: alert, oriented x 3, cooperative, clinical admissions manager II-XII nml as tested, sensation nml, No normal mood/affect, No motor deficits Skin Exam: normal color SpO2 Interpretation: normal SpO2: 96 O2 Delivery: Room Air Ordered Tests: Active Orders 24 hr Category Date Time Status [employer] STAT Care 10/08/21 15:37 Active CHEST 1 VIEW (PORTABLE) Stat Exams 10/08/21 15:37 Completed BLOOD CULTURE Stat Lab 10/08/21 16:00 Received CBC W DIFF Stat Lab 10/08/21 15:50 Completed CMP Stat Lab 10/08/21 15:50 Completed Lactic Acid Stat Lab 10/08/21 15:36 Completed MAGNESIUM Stat Lab 10/08/21 15:50 Completed NT PRO BNP Stat Lab 10/08/21 15:50 Completed TROPONIN Q3H Lab 10/08/21 15:50 Completed TROPONIN Q3H Lab 10/09/21 00:45 Ordered TROPONIN Q3H Lab 10/09/21 03:45 Ordered UA W/RFX UR CULTURE Stat Lab 10/08/21 16:48 Completed Medication Summary Generic Name Dose Route Start Last Admin Trade Name Freq PRN Reason Stop Dose Admin Sodium Chloride 1,000 mls @ 125 mls/hr 10/08/21 15:45 10/08/21 15:45 Sodium Chloride 0.9% 1000 Ml IV 11/07/21 15:44 125 mls/hr .Q8H DAVID Administration Lab/Rad Data: Laboratory Result Diagrams 10/08/21 15:50 10/08/21 15:50 Laboratory Results 10/08/21 10/08/21 10/08/21 Range/Units 17:27 16:48 15:50 WBC (4.0-10.5) K/mm3 RBC (4.1-5.4) M/mm3 Hgb (12.0-16.0) gm/dl Hct (35-47) % MCV (78-100) fl MCH (26-32) pg MCHC (32-36) g/dl RDW (11.5-14.0) % Plt Count (150-450) K/mm3 MPV (7.5-11.0) fl Gran % (36.0-66.0) % Eos # (Auto) (0-0.5) Absolute Lymphs (auto) (1.0-4.6) Absolute Monos (auto) (0.0-1.3) Lymphocytes % (24.0-44.0) % Monocytes % (0.0-12.0) % Eosinophils % (0.00-5.0) % Basophils % (0.0-0.4) % Absolute Granulocytes (1.4-6.9) Basophils # (0-0.4) Sodium (137-145) mmol/L Potassium (3.5-5.1) mmol/L Chloride (98-107) mmol/L Carbon Dioxide (22-30) mmol/L Anion Gap (5-15) MEQ/L BUN (7-17) mg/dL Creatinine (0.52-1.04) mg/dL Estimated GFR ML/MIN Glucose (74-106) mg/dL Lactic Acid (0.4-2.0) Calcium (8.4-10.2) mg/dL Magnesium (1.6-2.3) mg/dL Total Bilirubin (0.2-1.3) mg/dL AST (14-36) U/L ALT (0-35) U/L Alkaline Phosphatase (38-126) U/L Troponin I 0.015 (0.000-0.034) ng/mL NT-Pro-B Natriuret Pep (0-1800) pg/mL Serum Total Protein (6.3-8.2) g/dL Albumin (3.5-5.0) g/dL Urine Color YELLOW (YELLOW) Urine Appearance SLIGHTLY CLOUDY (CLEAR) Urine pH 5.0 (5-6) Ur Specific [place] 1.019 (1.005-1.025) Urine Protein 30 (Negative) Urine Ketones NEGATIVE (NEGATIVE) Urine Blood NEGATIVE (0-5) Dimitry/ul Urine Nitrite NEGATIVE (NEGATIVE) Urine Bilirubin NEGATIVE (NEGATIVE) Urine Urobilinogen NEGATIVE (0-1) mg/dL Ur Leukocyte Esterase NEGATIVE (NEGATIVE) Urine WBC (Auto) NONE (0-5) /HPF Urine RBC (Auto) NONE (0-2) /HPF U Epithel Cells (Auto) NONE (FEW) /HPF Urine Bacteria (Auto) NONE (NEGATIVE) /HPF Urine Mucus (Auto) SLIGHT (NEGATIVE) /HPF Urine Culture Reflexed NO (NO) Urine Glucose NEGATIVE (NEGATIVE) mg/dL Influenza Type A Ag NEGATIVE (NEGATIVE) Influenza Type B Ag NEGATIVE (NEGATIVE) RSV (PCR) NEGATIVE (Negative) SARS-CoV-2 (PCR) POSITIVE A (NEGATIVE) 12/01/21 12/01/21 12/01/21 Range/Units 15:50 15:50 15:36 WBC 5.8 (4.0-10.5) K/mm3 RBC 4.24 (4.1-5.4) M/mm3 Hgb 12.4 (12.0-16.0) gm/dl Hct 39.9 (35-47) % MCV 94.1 (78-100) fl MCH 29.2 (26-32) pg MCHC 31.1 L (32-36) g/dl RDW 14.5 H (11.5-14.0) % Plt Count 170 (150-450) K/mm3 MPV 10.5 (7.5-11.0) fl Gran % 67.9 H (36.0-66.0) % Eos # (Auto) 0.05 (0-0.5) Absolute Lymphs (auto) 0.95 L (1.0-4.6) Absolute Monos (auto) 0.85 (0.0-1.3) Lymphocytes % 16.4 L (24.0-44.0) % Monocytes % 14.6 H (0.0-12.0) % Eosinophils % 0.9 (0.00-5.0) % Basophils % 0.2 (0.0-0.4) % Absolute Granulocytes 3.95 (1.4-6.9) Basophils # 0.01 (0-0.4) Sodium 139 (137-145) mmol/L Potassium 3.5 (3.5-5.1) mmol/L Chloride 105 (98-107) mmol/L Carbon Dioxide 22 (22-30) mmol/L Anion Gap 14.8 (5-15) MEQ/L BUN 19 H (7-17) mg/dL Creatinine 1.26 H (0.52-1.04) mg/dL Estimated GFR 42.9 ML/MIN Glucose 108 H (74-106) mg/dL Lactic Acid 1.1 (0.4-2.0) Calcium 8.9 (8.4-10.2) mg/dL Magnesium 2.1 (1.6-2.3) mg/dL Total Bilirubin 0.30 (0.2-1.3) mg/dL AST 51 H (14-36) U/L ALT 44 H (0-35) U/L Alkaline Phosphatase 57 (38-126) U/L Troponin I (0.000-0.034) ng/mL NT-Pro-B Natriuret Pep 913 (0-1800) pg/mL Serum Total Protein 6.8 (6.3-8.2) g/dL Albumin 4.3 (3.5-5.0) g/dL Urine Color (YELLOW) Urine Appearance (CLEAR) Urine pH (5-6) Ur Specific [place] (1.005-1.025) Urine Protein (Negative) Urine Ketones (NEGATIVE) Urine Blood (0-5) Dimitry/ul Urine Nitrite (NEGATIVE) Urine Bilirubin (NEGATIVE) Urine Urobilinogen (0-1) mg/dL Ur Leukocyte Esterase (NEGATIVE) Urine WBC (Auto) (0-5) /HPF Urine RBC (Auto) (0-2) /HPF U Epithel Cells (Auto) (FEW) /HPF Urine Bacteria (Auto) (NEGATIVE) /HPF Urine Mucus (Auto) (NEGATIVE) /HPF Urine Culture Reflexed (NO) Urine Glucose (NEGATIVE) mg/dL Influenza Type A Ag (NEGATIVE) Influenza Type B Ag (NEGATIVE) RSV (PCR) (Negative) SARS-CoV-2 (PCR) (NEGATIVE) - Progress Progress: unchanged Progress Note: 10/08/21 19:08 86 years old is evaluated for generalized weakness fatigue and tiredness. She has nonfocal neuro exam. Afebrile, maintaining oxygen saturation around 96 to 98% on room air without any signs of distress. Normal white count, grossly unremarkable chemistries for any acute change except for mildly elevated transaminases. Chest x-ray negative for any acute infiltrative process. Given gentle hydration. Patient does have dementia per son which seems to be worsening for quite some time. I have obtained COVID-19 which is positive. She does have 1 dose of vaccination for Covid. Also has a positive exposure to Covid patient. She has stable vital, do not think needs admission at this point. With her having 1 dose of vaccine people usually do well with Covid. I have discussed with son and he will stay with her or she will go to his place. Discussed signs symptoms of worsening with patient and son in detail needing re turn to ER which do seem understanding. Counseled pt/family regarding: lab results, diagnosis, need for follow-up, rad results - Departure Departure Disposition: Home Clinical Impression: Generalized weakness, Viral syndrome, COVID-19 virus detected Condition: Stable Critical Care Time: No Referrals: PRASHANT GARDNER NP [Primary Care Provider] - Follow up/PCP as directed (1-2 days for reevaluation) Instructions: Coronavirus Disease 2019 (COVID-19) (DC), Viral Syndrome (DC) Additional Instructions: Tylenol as needed for aches/pain/fever. Increase hydration. Outpatient follow- up with primary care in 1 to 2 days for reevaluation. Return to ER if having cough, difficulty breathing, persistent fever, vomiting/diarrhea or worsening of generalized weakness etc.
[2021-10-08 18:37] LABS: INFLUENZA A NEGATIVE (NEGATIVE); INFLUENZA B NEGATIVE (NEGATIVE); RESPIRATORY SYNCTIAL VIRUS NEGATIVE (Negative)
[2021-10-08 18:38] LABS: SARS-CoV-2 Xpert Express POSITIVE (NEGATIVE)
[2021-10-08 19:30] VITALS: BP 160/90; PULSE 112
== END 2021-10-08 19:50 | disposition home or self-care (01) ==
LOC: ED 15:02
DX: U07.1 COVID-19 (principal); R53.1 Weakness; R05.9 Cough, unspecified; I10 Essential (primary) hypertension; Z79.891 Long term (current) use of opiate analgesic; Z79.01 Long term (current) use of anticoagulants
CPT/HCPCS: 0241U; 36415; 71045; 80053; 81001; 83605; 83735; 83880; 84484; 85025; 87040; 93041; 99284; P9612